=== PATIENT | male | born 1980 | race Caucasian/White ===

== ENCOUNTER 2018-08-27 14:32 | Emergency (ER) | payer MEDICAID ==
[~2018-08-27] VITALS: Ht 188 cm; Wt 90.0 kg
[~2018-08-27 14:32] MED LIST: ACET-3068 PO; ALBU8HFA PO; HYDR-4383 PO
[2018-08-27] MEDS ORDERED: ketorolac trometh. 30mg/ml inj. IV ONE (14:50)
[2018-08-27] MEDS ORDERED: ondansetron/PF 4mg/2ml inj IV ONE (14:50)
[2018-08-27] MEDS: morphine 4 MG/ML inj SYRINge IV PRN ×2 (15:02→16:42)
[2018-08-27 15:03] LABS: CLARITY,URINE SLIGHTLY CLOUDY (Clear); COLOR,URINE YELLOW (Yellow); GLUCOSE, URINE NEGATIVE (Neg); KETONES,URINE NEGATIVE (Neg); LEUKOCYTE ESTERASE ,URINE NEGATIVE (Neg); NITRITES, URINE NEGATIVE (Neg); OCCULT BLOOD,URINE NEGATIVE (Neg); PH,URINE 7.5 (4.8-8.0); PROTEIN,URINE NEGATIVE (Neg); UROBILINOGEN,URINE 0.2 E.U/dL (0.2-1.0)
[2018-08-27 15:06] LABS: UA COLLECTION TYPE CLN CATCH MIDSTREAM
[2018-08-27 15:15] LABS: BACTERIA,URINE FEW /HPF (Neg); RBC,URINE 0-2 /HPF (0-2); SQUAMOUS EPITHELIAL CELL,UR FEW /LPF (FEW); WBC,URINE NONE SEEN /HPF (0-4)
[2018-08-27 15:23] LABS: URINE AMPHETAMINE SCREEN POSITIVE (Neg); URINE BARBITUATE SCREEN NEGATIVE (Neg); URINE BENZODIAZEPINES SCREEN NEGATIVE (Neg); URINE CANNABINOID SCREEN POSITIVE (Neg); URINE COCAINE SCREEN NEGATIVE (Neg); URINE METHADONE SCREEN NEGATIVE (Neg); URINE OPIATE SCREEN POSITIVE (Neg); URINE PHENCYCLIDINE SCREEN NEGATIVE (Neg)
[2018-08-27 15:36] LABS: BASOPHILS # (AUTO) 0.1 X10'3 (0-0.2); BASOPHILS % (AUTO) 0.4 % (0-1); EOSINOPHILS # (AUTO) 0.1 X10'3 (0-0.9); EOSINOPHILS % (AUTO) 0.4 % (0-6); HEMATOCRIT 39.2 % (42.0-52.0); HEMOGLOBIN 13.3 g/dl (14.0-17.9); LYMPHOCYTES # (AUTO) 1.1 X10'3 (1.1-4.8); LYMPHOCYTES % (AUTO) 6.8 % (21-51); MEAN CORPUSCULAR HEMOGLOBIN 28.6 PG (27.0-31.0); MEAN CORPUSCULAR HGB CONC 33.9 g/dL (33.0-36.5); MEAN CORPUSCULAR VOLUME 84.2 FL (78-98); MEAN PLATELET VOLUME 7.7 FL (7.4-10.4); MONOCYTES # (AUTO) 1.1 X10'3 (0-0.9); MONOCYTES % (AUTO) 6.9 % (2-12); NEUTROPHILS # (AUTO) 14.1 X10'3 (1.8-7.7); NEUTROPHILS % (AUTO) 85.5 % (42-75); PLATELET COUNT 410 X10'3 (140-440); RED BLOOD COUNT 4.65 X10'6 (4.70-6.10); RED CELL DISTRIBUTION WIDTH 12.2 % (11.5-14.5); WHITE BLOOD COUNT 16.5 X10'3 (4.5-11.0)
[2018-08-27 15:37] LABS: INR 1.1 INR; PROTHROMBIN TIME 11.5 SECONDS (9.0-12.0)
[2018-08-27 15:40] LABS: ALANINE AMINOTRANSFERASE 22 U/L (12-78); ALBUMIN 3.6 G/DL (3.4-5.0); ALBUMIN/GLOBULIN RATIO 0.8 (1.1-1.5); ALKALINE PHOSPHATASE 70 IU/L (46-116); ANION GAP 9 (8-16); ASPARTATE AMINO TRANSFERASE 20 U/L (10-37); BILIRUBIN,TOTAL 0.4 MG/DL (0.1-1.0); BLOOD UREA NITROGEN 11 MG/DL (7-18); BUN/CREATININE RATIO 13.4 (5.4-32.0); CALCIUM 9.7 MG/DL (8.5-10.1); CHLORIDE 99 MMOL/L (99-107); CREATININE 0.82 MG/DL (0.60-1.10); GLUCOSE 130 MG/DL (70-104); POTASSIUM 4.2 MMOL/L (3.5-5.1); SODIUM 136 MMOL/L (135-145); TOTAL CARBON DIOXIDE 28.5 MMOL/L (24-32); TOTAL PROTEIN 8.3 G/DL (6.4-8.2); eGFR > 90 ML/MIN
[2018-08-27] MEDS ORDERED: LIDOcaine 2% 10ml TOPICAL JELLY (Urojet) MM ONE (16:35)
[2018-08-27] MEDS ORDERED: CIPR-230 PO (17:05)
== END 2018-08-27 17:18 | disposition home or self-care (01) ==
LOC: ER 14:32
DX: N41.9 Inflammatory disease of prostate, unspecified (principal); R33.9 Retention of urine, unspecified; F15.90 Other stimulant use, unspecified, uncomplicated; Z88.8 Allergy status to other drugs, medicaments and biological substances
CPT/HCPCS: 36415; 51702; 74176; 80053; 80305; 81001; 85025; 85610; 96374; 96375; 96376; 99284; J1885; J2270; J2405

== ENCOUNTER 2018-08-29 19:13 | Inpatient (IN) | payer MEDICAID ==
[~2018-08-29] VITALS: Ht 182.9 cm; Wt 86.4 kg
[~2018-08-29 19:13] MED LIST changes: +CIPR-230 PO
[2018-08-29 20:08] LABS: BASOPHILS # (AUTO) 0.1 X10'3 (0-0.2); BASOPHILS % (AUTO) 0.4 % (0-1); EOSINOPHILS # (AUTO) 0.2 X10'3 (0-0.9); EOSINOPHILS % (AUTO) 1.5 % (0-6); HEMATOCRIT 40.6 % (42.0-52.0); LYMPHOCYTES # (AUTO) 1.3 X10'3 (1.1-4.8); LYMPHOCYTES % (AUTO) 8.2 % (21-51); MEAN CORPUSCULAR HEMOGLOBIN 28.9 PG (27.0-31.0); MEAN CORPUSCULAR HGB CONC 34.6 g/dL (33.0-36.5); MEAN CORPUSCULAR VOLUME 83.6 FL (78-98); MEAN PLATELET VOLUME 7.5 FL (7.4-10.4); MONOCYTES # (AUTO) 1.7 X10'3 (0-0.9); MONOCYTES % (AUTO) 10.7 % (2-12); NEUTROPHILS # (AUTO) 12.3 X10'3 (1.8-7.7); NEUTROPHILS % (AUTO) 79.2 % (42-75); PLATELET COUNT 450 X10'3 (140-440); RED BLOOD COUNT 4.86 X10'6 (4.70-6.10); RED CELL DISTRIBUTION WIDTH 12.4 % (11.5-14.5); WHITE BLOOD COUNT 15.6 X10'3 (4.5-11.0)
[2018-08-29 20:14] LABS: CLARITY,URINE CLEAR (Clear); COLOR,URINE YELLOW (Yellow); GLUCOSE, URINE NEGATIVE (Neg); KETONES,URINE NEGATIVE (Neg); LEUKOCYTE ESTERASE ,URINE NEGATIVE (Neg); NITRITES, URINE NEGATIVE (Neg); OCCULT BLOOD,URINE TRACE-LYSED (Neg); PROTEIN,URINE NEGATIVE (Neg); UROBILINOGEN,URINE 0.2 E.U/dL (0.2-1.0)
[2018-08-29 20:19] LABS: ANION GAP 10 (8-16); BILIRUBIN,TOTAL 0.5 MG/DL (0.1-1.0); BLOOD UREA NITROGEN 12 MG/DL (7-18); CALCIUM 9.7 MG/DL (8.5-10.1); CHLORIDE 99 MMOL/L (99-107); GLUCOSE 91 MG/DL (70-104); POTASSIUM 4.4 MMOL/L (3.5-5.1); SODIUM 137 MMOL/L (135-145); TOTAL CARBON DIOXIDE 28.1 MMOL/L (24-32); eGFR > 90 ML/MIN
[2018-08-29 20:20] LABS: ALANINE AMINOTRANSFERASE 24 U/L (12-78); ALBUMIN 3.5 G/DL (3.4-5.0); ALBUMIN/GLOBULIN RATIO 0.7 (1.1-1.5); ALKALINE PHOSPHATASE 77 IU/L (46-116); ASPARTATE AMINO TRANSFERASE 16 U/L (10-37); INR 1.2 INR; LIPASE 174 U/L (73-393); PROTHROMBIN TIME 11.7 SECONDS (9.0-12.0); TOTAL PROTEIN 8.8 G/DL (6.4-8.2)
[2018-08-29 20:20] LABS: UA COLLECTION TYPE FOLEY CATH
[2018-08-29 20:21] LABS: BACTERIA,URINE NONE SEEN /HPF (Neg); RBC,URINE 0-2 /HPF (0-2); SQUAMOUS EPITHELIAL CELL,UR FEW /LPF (FEW); WBC,URINE NONE SEEN /HPF (0-4)
[2018-08-29] MEDS ORDERED: iohexol 300mg/ml 100ml inj. ONE (20:35)
[2018-08-29] MEDS ORDERED: morphine 4 MG/ML inj SYRINge IV ONE ×2 (21:00→22:50)
[2018-08-29] MEDS ORDERED: gentamicin 40 MG/1 ML inj IV STA (22:26)
[2018-08-29] MEDS ORDERED: levoFLOXACIN-Levaquin 750MG/D5 150 ML IV ONE (22:30)
[2018-08-29] MEDS ORDERED: normal saline 1000ML IV soln IV ONE (22:30)
[2018-08-29] MEDS ORDERED: NORMAL SALINE IV ONE (22:45)
[2018-08-29] MEDS ORDERED: GENTAMICIN IV ONE (22:45)
--- NOTE | 2018-08-29 22:53 | NUR ---
pt requested 2nd iv in hand. large bore placed for emergent fluid resuscitation and possible need for surgery
[2018-08-29] MEDS ORDERED: ondansetron/PF 4mg/2ml inj IV PRN (23:25)
[2018-08-29] MEDS ORDERED: HYDROmorphone inj. 0.5 MG/0.5 ML DISP.SYRIN IV PRN (23:25)
[2018-08-30] MEDS: normal saline 1000ml 1,000 ML IV SCH ×3 (00:23→20:44)
[2018-08-30] MEDS ORDERED: [UNRECOGNIZED DRUG - REMARK] IV ONE (00:45)
--- NOTE | 2018-08-30 01:01 | NUR ---
Received report from Ever GO from ED, time provided for questions, will assess patient when he arrives.
[2018-08-30 01:10] VITALS: BP 120/77
[2018-08-30] MEDS: HYDROmorphone 1 mg/ml syringe IV PRN ×3 (01:39→08:15)
[2018-08-30 05:57] LABS: BASOPHILS % (AUTO) 0.2 % (0-1); EOSINOPHILS # (AUTO) 0.2 X10'3 (0-0.9); EOSINOPHILS % (AUTO) 1.3 % (0-6); HEMATOCRIT 34.4 % (42.0-52.0); HEMOGLOBIN 11.8 g/dl (14.0-17.9); LYMPHOCYTES # (AUTO) 0.9 X10'3 (1.1-4.8); LYMPHOCYTES % (AUTO) 7.4 % (21-51); MEAN CORPUSCULAR HEMOGLOBIN 28.8 PG (27.0-31.0); MEAN CORPUSCULAR HGB CONC 34.3 g/dL (33.0-36.5); MEAN CORPUSCULAR VOLUME 83.7 FL (78-98); MEAN PLATELET VOLUME 7.5 FL (7.4-10.4); MONOCYTES # (AUTO) 1.1 X10'3 (0-0.9); MONOCYTES % (AUTO) 9.2 % (2-12); NEUTROPHILS # (AUTO) 9.6 X10'3 (1.8-7.7); NEUTROPHILS % (AUTO) 81.9 % (42-75); PLATELET COUNT 262 X10'3 (140-440); RED BLOOD COUNT 4.11 X10'6 (4.70-6.10); WHITE BLOOD COUNT 11.7 X10'3 (4.5-11.0)
[2018-08-30 06:31] LABS: ANION GAP 6 (8-16); CHLORIDE 103 MMOL/L (99-107); GLUCOSE 94 MG/DL (70-104); POTASSIUM 4.1 MMOL/L (3.5-5.1); SODIUM 137 MMOL/L (135-145)
[2018-08-30 06:32] LABS: ALANINE AMINOTRANSFERASE 16 U/L (12-78); ALBUMIN 2.7 G/DL (3.4-5.0); ALBUMIN/GLOBULIN RATIO 0.7 (1.1-1.5); ALKALINE PHOSPHATASE 56 IU/L (46-116); ASPARTATE AMINO TRANSFERASE 14 U/L (10-37); BILIRUBIN,TOTAL 0.5 MG/DL (0.1-1.0); BLOOD UREA NITROGEN 8 MG/DL (7-18); BUN/CREATININE RATIO 11.3 (5.4-32.0); CALCIUM 8.6 MG/DL (8.5-10.1); CREATININE 0.71 MG/DL (0.60-1.10); TOTAL PROTEIN 6.8 G/DL (6.4-8.2); eGFR > 90 ML/MIN
--- NOTE | 2018-08-30 06:49 | NUR ---
Problems reprioritized. Patient report given, questions answered & plan of care reviewed with Stephanie GO. Patient resting eyes closed respirations even
[2018-08-30 07:08] VITALS: BP 113/58
[2018-08-30] MEDS: morphine 4 MG/ML inj SYRINge IV PRN ×5 (11:20→23:49)
[2018-08-30] MEDS: vancomycin inj 1,250 MG in normal saline 250ml IV soln 250 ML IV SCH ×2 (14:41→20:44)
[2018-08-30 18:00] VITALS: BP 108/67
--- NOTE | 2018-08-30 18:20 | NUR ---
Received report from Stephanie GO, assumed care of patient.
[2018-08-30 19:58] LABS: HIV ANTIBODY 1&2 RAPID NON-REACTIVE (Neg)
[2018-08-30] MEDS ORDERED: vancomycin/NS 1 GM ADD-VANTAGE 250 ML IV SCH (20:00)
[2018-08-30] MEDS ORDERED: acetaminophen 650mg rectal suppository RC PRN (21:50)
[2018-08-30] MEDS ORDERED: acetaminophen 325mg tablet PO PRN (21:50)
[2018-08-30 22:00] VITALS: BP 111/61
[2018-08-30] MEDS ORDERED: levoFLOXACIN-Levaquin 750MG/D5 150 ML IV SCH (22:00)
[2018-08-30] MEDS ORDERED: GENTAMICIN IV SCH (23:30)
[2018-08-30] MEDS ORDERED: NORMAL SALINE IV SCH (23:30)
[2018-08-31] VITALS (25 sets, daily range): BP systolic 95–138; BP diastolic 55–103
[2018-08-31] MEDS: morphine 4 MG/ML inj SYRINge IV PRN ×7 (03:21→21:35)
[2018-08-31] MEDS: vancomycin inj 1,250 MG in normal saline 250ml IV soln 250 ML IV SCH ×3 (04:03→21:20)
[2018-08-31] MEDS: normal saline 1000ml 1,000 ML IV SCH ×2 (05:22→21:26)
[2018-08-31 05:55] LABS: BASOPHILS % (AUTO) 0.3 % (0-1); EOSINOPHILS # (AUTO) 0.1 X10'3 (0-0.9); EOSINOPHILS % (AUTO) 0.9 % (0-6); HEMATOCRIT 33.7 % (42.0-52.0); HEMOGLOBIN 11.6 g/dl (14.0-17.9); LYMPHOCYTES % (AUTO) 6.8 % (21-51); MEAN CORPUSCULAR HEMOGLOBIN 28.6 PG (27.0-31.0); MEAN CORPUSCULAR HGB CONC 34.4 g/dL (33.0-36.5); MEAN CORPUSCULAR VOLUME 83.2 FL (78-98); MEAN PLATELET VOLUME 7.5 FL (7.4-10.4); MONOCYTES # (AUTO) 1.4 X10'3 (0-0.9); NEUTROPHILS # (AUTO) 11.7 X10'3 (1.8-7.7); PLATELET COUNT 256 X10'3 (140-440); RED BLOOD COUNT 4.05 X10'6 (4.70-6.10); RED CELL DISTRIBUTION WIDTH 12.1 % (11.5-14.5); WHITE BLOOD COUNT 14.2 X10'3 (4.5-11.0)
[2018-08-31 06:17] LABS: ALANINE AMINOTRANSFERASE 19 U/L (12-78); ALBUMIN 2.7 G/DL (3.4-5.0); ALBUMIN/GLOBULIN RATIO 0.6 (1.1-1.5); ALKALINE PHOSPHATASE 72 IU/L (46-116); ANION GAP 9 (8-16); ASPARTATE AMINO TRANSFERASE 15 U/L (10-37); BILIRUBIN,TOTAL 0.6 MG/DL (0.1-1.0); BLOOD UREA NITROGEN 9 MG/DL (7-18); BUN/CREATININE RATIO 12.3 (5.4-32.0); CALCIUM 9.2 MG/DL (8.5-10.1); CHLORIDE 101 MMOL/L (99-107); CREATININE 0.73 MG/DL (0.60-1.10); GLUCOSE 101 MG/DL (70-104); POTASSIUM 3.9 MMOL/L (3.5-5.1); SODIUM 137 MMOL/L (135-145); TOTAL CARBON DIOXIDE 27.2 MMOL/L (24-32); TOTAL PROTEIN 7.1 G/DL (6.4-8.2); eGFR > 90 ML/MIN
--- NOTE | 2018-08-31 06:49 | NUR ---
Report given to Criselda GO.
[2018-08-31] MEDS: CefTRIAXone/D5W-Rocephin 1gm 50 ML IV SCH (08:31)
[2018-08-31] MEDS ORDERED: VANCOMYCIN LEVEL IV NR (11:30)
--- NOTE | 2018-08-31 13:55 | NUR ---
Student documentation: I have reviewed and agree with all interventions, assessments performed and documented by Cecilia Sharma RN.
[2018-08-31] MEDS ORDERED: ringers solution, lacted 1,000 ML IV SCH (14:08)
[2018-08-31] MEDS ORDERED: ondansetron/PF 4mg/2ml inj IV PRN (14:10)
[2018-08-31] MEDS ORDERED: labetalol 20mg/4ml (5mg/ml) syringe IV PRN (14:10)
[2018-08-31] MEDS ORDERED: hydrALAZINE 20mg/ml inj. IV PRN (14:10)
[2018-08-31] MEDS ORDERED: fentaNYL/PF 50MCG/1 ML 2ML syringe IV PRN ×2 (14:10)
[2018-08-31] MEDS ORDERED: morphine 4 MG/ML inj SYRINge IV PRN ×2 (14:10)
[2018-08-31] MEDS ORDERED: midazolam 2 mg/2 ml injection ONE (14:26)
[2018-08-31] MEDS ORDERED: fentaNYL/PF 50MCG/1 ML 2ML syringe ONE ×2 (14:26→14:55)
[2018-08-31] MEDS ORDERED: propofol inj 20 ML IV ONE (14:27)
[2018-08-31] MEDS ORDERED: LIDOcaine 2% (20mg/ml) 5ml vial ONE (14:27)
[2018-08-31] MEDS ORDERED: dexamethasone sod phosphate 10mg/ml inj ONE (14:28)
[2018-08-31] MEDS ORDERED: ondansetron/PF 4mg/2ml inj ONE (14:28)
[2018-08-31] MEDS ORDERED: sevoflurane 250ml liquid IH ONE (14:28)
--- NOTE | 2018-08-31 15:35 | NUR ---
Received from OR via BED, accompanied by Anesthesiologist KERI and report given by Anesthesiolgist. PT DROWSY, OXYGENATING WELL ON 10 LPM O2 VIA MASK, NO RESP DISTRESS NOTED. PT MOANING AND CRYING, C/O SEVERE PENIS BURNING PAIN. WILL MEDICATE PRN, SEE EMAR. FC PATENT TO GRAVITY, BLOODY DRAINAGE IN BAG. VSS. SCDS ON.
--- NOTE | 2018-08-31 17:00 | NUR ---
REC REPORT FROM LYNDA IN RECOVERY
--- NOTE | 2018-08-31 17:50 | NUR ---
CLOTTING NOTED IN LINK TUBING. NOTIFIED CHRIS VENEGAS ORDERS TO IRRIGATE TIL CLEAR THEN START CBI IF NEEDED. CBI STARTED, PINK OUTPUT IN BAG. VSS. PAIN LEVEL TRENDING DOWN, AFTER MEDS GIVEN. TOLERATING PO FLUIDS WELL. TRANSFERRED TO 3 SURG IN STABLE CONDITION. REPORT GIVEN TO RECEIVING RN.
--- NOTE | 2018-08-31 18:06 | NUR ---
PT ARRIVED FROM RECOVERY ROOM. PT ALERT AND ORIENTED. CBI RUNNING
--- NOTE | 2018-08-31 18:38 | NUR ---
Problems reprioritized. Patient report given, questions answered & plan of care reviewed with NIECY PEMBERTON RN.
--- NOTE | 2018-08-31 18:40 | NUR ---
Patient in room [facility]. I have received report from AMAN GO and had the opportunity to ask questions and assume patient care.
[2018-09-01] VITALS: BP 92/65
[2018-09-01] MEDS: normal saline 1000ml 1,000 ML IV SCH ×3 (01:22→21:22)
[2018-09-01] MEDS: vancomycin inj 1,250 MG in normal saline 250ml IV soln 250 ML IV SCH ×4 (02:07→17:47)
[2018-09-01] MEDS: morphine 4 MG/ML inj SYRINge IV PRN ×5 (02:09→21:02)
[2018-09-01] MEDS ORDERED: VANCOMYCIN LEVEL IV NR ×2 (05:30→11:30)
--- NOTE | 2018-09-01 06:30 | NUR ---
Problems reprioritized. Patient report given, questions answered & plan of care reviewed with AMAN GO.
--- NOTE | 2018-09-01 06:42 | NUR ---
Patient in room [facility]. I have received report from abelino roca rn and had the opportunity to ask questions and assume patient care.
[2018-09-01 07:00] VITALS: BP 94/50
[2018-09-01] MEDS: CefTRIAXone/D5W-Rocephin 1gm 50 ML IV SCH (09:04)
--- NOTE | 2018-09-01 18:30 | NUR ---
Patient in room [facility]. I have received report from AMAN GO and had the opportunity to ask questions and assume patient care.
[2018-09-01 20:00] VITALS: BP 113/66
--- NOTE | 2018-09-01 20:00 | NUR ---
PATIENT MOVED TO ROOM 347B.
[2018-09-02] VITALS: BP 109/60
[2018-09-02] MEDS: vancomycin inj 1,250 MG in normal saline 250ml IV soln 250 ML IV SCH ×3 (00:30→12:22)
[2018-09-02] MEDS: morphine 4 MG/ML inj SYRINge IV PRN ×3 (01:11→08:52)
[2018-09-02] MEDS: normal saline 1000ml 1,000 ML IV SCH (01:12)
--- NOTE | 2018-09-02 06:00 | NUR ---
Patient in room [facility]. I have received report from Becky GO and had the opportunity to ask questions and assume patient care.
--- NOTE | 2018-09-02 06:30 | NUR ---
Problems reprioritized. Patient report given, questions answered & plan of care reviewed with GURJIT GO.
[2018-09-02 07:30] VITALS: BP 95/53
[2018-09-02] MEDS: CefTRIAXone/D5W-Rocephin 1gm 50 ML IV SCH (09:29)
--- NOTE | 2018-09-02 10:38 | NUR ---
Dr. Fraire informed of low BP of /53 this AM. No new orders at this time.
[2018-09-02 12:10] VITALS: BP 92/46
[2018-09-02 13:34] VITALS: BP_SYST 112; BP_SYST 122; BP_SYST 125; BP_DIAS 51; BP_DIAS 59; BP_DIAS 66
--- NOTE | 2018-09-02 13:49 | NUR ---
Dr Requested patients orthostatic vitals: reported as charted, Patient ambulated 300' tolerated well. Advised Dr Wilson that patient was complaining of bladder spasms Received orders for Ditropan 5mg PO Q8H prn for spasms, [place] 5/325 Q6h Prn for mod / severe pain and Tylenol 650 mg PO Q6H prn for mild pain.
[2018-09-02] MEDS ORDERED: acetaminophen 325mg tablet PO PRN (13:50)
[2018-09-02] MEDS: oxybutynin 5mg tablet PO PRN (14:01)
[2018-09-02] MEDS: HYDROcodone/acetaminophen 5mg/325mg tablet PO PRN ×2 (14:01→19:58)
--- NOTE | 2018-09-02 18:24 | NUR ---
Problems reprioritized. Patient report given, questions answered & plan of care reviewed with Julio GO.
--- NOTE | 2018-09-02 18:25 | NUR ---
Patient in room [facility]. I have received report from GURJIT GO and had the opportunity to ask questions and assume patient care.
--- NOTE | 2018-09-02 18:28 | NUR ---
Student documentation: I have reviewed and agree with all interventions, assessments performed and documented by Maia Student Nurse. Student Medication Administration: For this medication-pass time frame, all medication were reviewed, dispensed, administered and documented per hospital policy by Maia Student Nurse.
[2018-09-02 19:00] VITALS: BP 95/54
[2018-09-02] MEDS: ciprofloxacin 250mg tablet PO SCH (19:57)
[2018-09-02] MEDS: lactobacillus rhamnosus 10,000 MMU CELLS/CAPSULE PO SCH (19:57)
[2018-09-03] VITALS: BP 99/50
--- NOTE | 2018-09-03 06:19 | NUR ---
Patient in room [facility]. I have received report from Julio GO and had the opportunity to ask questions and assume patient care.
--- NOTE | 2018-09-03 06:20 | NUR ---
Problems reprioritized. Patient report given, questions answered & plan of care reviewed with SHASTA GO.
[2018-09-03 07:00] VITALS: BP 107/63
[2018-09-03] MEDS: lactobacillus rhamnosus 10,000 MMU CELLS/CAPSULE PO SCH (07:57)
[2018-09-03] MEDS: ciprofloxacin 250mg tablet PO SCH (07:57)
[2018-09-03] MEDS: oxybutynin 5mg tablet PO PRN (07:57)
[2018-09-03] MEDS ORDERED: OXYB5TAB11 PO (09:54)
[2018-09-03] MEDS ORDERED: HYDR-4383 PO (09:54)
[2018-09-03] MEDS: HYDROcodone/acetaminophen 5mg/325mg tablet PO PRN (09:55)
--- NOTE | 2018-09-03 11:30 | NUR ---
Discharged patient home accompanied by his mother at bedside. Discharge instructions given to patient and his mom who is a nurse. Patient and the mother verbalized understanding of all instructions made. Hahn catheter care teaching done. New leg bag, drainage bag, hahn stat lock, and alcohol pads given to patient. Importance of handwashing before and after touching hahn catheter was emphasized. Instructed patient to ensure they have all their belongings. Written prescription for [place] and Ditropan were given to patient's mom. Work excuse note given to patient prior to discharge, was placed inside the discharge folder along with written prescriptions. Peripheral catheter removed, tip intact
--- NOTE | 2018-09-05 09:35 | NUR ---
pt's d/c'd, ss referral closed. Addendum: 09/05/18 at 0936 by Marva Mejía SS Amended: Links added.
== END 2018-09-03 11:35 | disposition home or self-care (01) | DRG 710 ==
LOC: ER 19:14 → ED HOLD 23:22 → EDBEDREQ 08-30 00:57 → ORTHO 4S 08-30 01:13 → UNDODISIN 08-31 15:10 → SUR 3N 08-31 17:05
PROVIDERS: ADMIT Internal Medicine; ATTEND Internal Medicine
PROC: BW211ZZ Computerized Tomography (CT Scan) of Abdomen and Pelvis using Low Osmolar Contrast (ICD-10-PCS; 2018-08-29)
PROC: 0V908ZZ Drainage of Prostate, Via Natural or Artificial Opening Endoscopic (ICD-10-PCS; 2018-08-31)
PROC: 0VB08ZZ Excision of Prostate, Via Natural or Artificial Opening Endoscopic (ICD-10-PCS; principal; 2018-08-31 14:33)
DX: A41.9 Sepsis, unspecified organism (principal); F15.90 Other stimulant use, unspecified, uncomplicated; N41.2 Abscess of prostate; K59.00 Constipation, unspecified; N32.89 Other specified disorders of bladder; F41.9 Anxiety disorder, unspecified; F32.9 Major depressive disorder, single episode, unspecified; N41.0 Acute prostatitis; R33.9 Retention of urine, unspecified; Z79.899 Other long term (current) drug therapy; Z88.8 Allergy status to other drugs, medicaments and biological substances
CPT/HCPCS: 36415; 74177; 80053; 80202; 81001; 83605; 83690; 84145; 85025; 85610; 86703; 87040; 87070; 93005; 96365; 96375; 99285; A4346; A4402; G0378; J0696; J1100; J1170; J1580; J1956; J2001; J2250; J2270; J2405; J2704; J3010; J3370; J3490; J7030; J7120; Q9967

== ENCOUNTER 2020-01-09 13:33 | Emergency (ER) | payer MEDICAID ==
[~2020-01-09] VITALS: Ht 188 cm; Wt 83.7 kg
[~2020-01-09 13:33] MED LIST changes: -ACET-3068 PO; -ALBU8HFA PO; -CIPR-230 PO; +OXYB5TAB16 PO
[2020-01-09 15:40] VITALS: BP 107/60
== END 2020-01-09 15:37 | disposition home or self-care (01) ==
LOC: ER 13:34
DX: S06.0X0A Concussion without loss of consciousness, initial encounter (principal); L72.3 Sebaceous cyst; R51 Headache; R42 Dizziness and giddiness; F15.90 Other stimulant use, unspecified, uncomplicated; Z87.01 Personal history of pneumonia (recurrent); Z87.440 Personal history of urinary (tract) infections; Z88.8 Allergy status to other drugs, medicaments and biological substances; Z79.899 Other long term (current) drug therapy; W18.39XA Other fall on same level, initial encounter; Y93.89 Activity, other specified; Y92.89 Other specified places as the place of occurrence of the external cause; Y99.8 Other external cause status
CPT/HCPCS: 70450; 93005; 99284

== ENCOUNTER 2020-03-12 16:16 | Emergency (ER) | payer MEDICAID ==
--- NOTE | 2020-03-12 16:59 | NUR ---
not in lobby.
[2020-03-12] MEDS ORDERED: SULF1TAB49 PO (21:33)
== END 2020-03-12 17:00 | disposition left against medical advice (07) ==
LOC: ER 16:17
DX: R10.9 Unspecified abdominal pain (principal); Z53.21 Procedure and treatment not carried out due to patient leaving prior to being seen by health care provider

== ENCOUNTER 2020-03-12 17:56 | Emergency (ER) | payer MEDICAID ==
[~2020-03-12] VITALS: Ht 188 cm; Wt 104.5 kg
[2020-03-12 18:29] VITALS: BP 100/64
[2020-03-12 19:15] LABS: CLARITY,URINE CLEAR (Clear); COLOR,URINE YELLOW (Yellow); GLUCOSE, URINE NEGATIVE (Neg); KETONES,URINE NEGATIVE (Neg); LEUKOCYTE ESTERASE ,URINE TRACE (Neg); NITRITES, URINE NEGATIVE (Neg); OCCULT BLOOD,URINE NEGATIVE (Neg); PROTEIN,URINE TRACE mg/dl (Neg)
[2020-03-12 19:18] LABS: UA COLLECTION TYPE CLN CATCH MIDSTREAM
[2020-03-12 19:28] LABS: BACTERIA,URINE 1+ /HPF (Neg); RBC,URINE NONE SEEN /HPF (0-2); SQUAMOUS EPITHELIAL CELL,UR FEW /LPF (FEW); WBC,URINE 0-4 /HPF (0-4)
[2020-03-12 20:06] LABS: BASOPHILS % (AUTO) 0.5 % (0-1); EOSINOPHILS # (AUTO) 0.2 X10'3 (0-0.9); EOSINOPHILS % (AUTO) 3.5 % (0-6); HEMATOCRIT 38.8 % (42.0-52.0); HEMOGLOBIN 13.3 g/dl (14.0-17.9); LYMPHOCYTES # (AUTO) 1.4 X10'3 (1.1-4.8); LYMPHOCYTES % (AUTO) 28.9 % (21-51); MEAN CORPUSCULAR HEMOGLOBIN 28.4 PG (27.0-31.0); MEAN CORPUSCULAR HGB CONC 34.2 g/dL (33.0-36.5); MEAN CORPUSCULAR VOLUME 83.2 FL (78-98); MEAN PLATELET VOLUME 7.9 FL (7.4-10.4); MONOCYTES # (AUTO) 0.5 X10'3 (0-0.9); MONOCYTES % (AUTO) 10.9 % (2-12); NEUTROPHILS # (AUTO) 2.8 X10'3 (1.8-7.7); NEUTROPHILS % (AUTO) 56.2 % (42-75); PLATELET COUNT 190 X10'3 (140-440); RED BLOOD COUNT 4.66 X10'6 (4.70-6.10); RED CELL DISTRIBUTION WIDTH 13.4 % (11.5-14.5)
[2020-03-12 20:17] LABS: ALANINE AMINOTRANSFERASE 17 U/L (12-78); ALKALINE PHOSPHATASE 65 IU/L (46-116); ANION GAP 3 (8-16); ASPARTATE AMINO TRANSFERASE 26 U/L (10-37); BILIRUBIN,TOTAL 0.5 MG/DL (0.1-1.0); BLOOD UREA NITROGEN 15 MG/DL (7-18); BUN/CREATININE RATIO 14.4 (5.4-32.0); CHLORIDE 104 MMOL/L (99-107); CREATININE 1.04 MG/DL (0.60-1.10); GLUCOSE 80 MG/DL (70-104); POTASSIUM 4.1 MMOL/L (3.5-5.1); SODIUM 141 MMOL/L (135-145); TOTAL CARBON DIOXIDE 33.8 MMOL/L (24-32); eGFR 79 ML/MIN
[2020-03-12] MEDS ORDERED: SULF1TAB49 PO (21:33)
== END 2020-03-12 21:56 | disposition home or self-care (01) ==
LOC: ER 17:57
DX: N39.0 Urinary tract infection, site not specified (principal); R10.30 Lower abdominal pain, unspecified; R30.0 Dysuria; F15.90 Other stimulant use, unspecified, uncomplicated; Z87.01 Personal history of pneumonia (recurrent); Z87.442 Personal history of urinary calculi; Z88.8 Allergy status to other drugs, medicaments and biological substances; Z79.2 Long term (current) use of antibiotics
CPT/HCPCS: 36415; 80053; 81001; 84145; 85025; 87088; 99284

== ENCOUNTER 2020-04-03 00:38 | Emergency (ER) | payer MEDICAID ==
[~2020-04-03] VITALS: Ht 188 cm; Wt 90.9 kg
--- NOTE | 2020-04-03 01:47 | NUR ---
dr. fishman at bedside assessing patient
[2020-04-03] MEDS ORDERED: ketorolac trometh. 30mg/ml inj. IM ONE (02:00)
[2020-04-03] MEDS ORDERED: CYCL-1 PO (02:49)
[2020-04-03 02:57] VITALS: BP 136/89
== END 2020-04-03 02:56 | disposition home or self-care (01) ==
LOC: ER 00:39
DX: S29.012A Strain of muscle and tendon of back wall of thorax, initial encounter (principal); F15.90 Other stimulant use, unspecified, uncomplicated; Z88.8 Allergy status to other drugs, medicaments and biological substances; Z79.899 Other long term (current) drug therapy; X58.XXXA Exposure to other specified factors, initial encounter; Y93.89 Activity, other specified; Y92.89 Other specified places as the place of occurrence of the external cause; Y99.8 Other external cause status
CPT/HCPCS: 71046; 96372; 99283; J1885

== ENCOUNTER 2020-10-08 04:07 | Emergency (ER) | payer MEDICAID ==
[~2020-10-08] VITALS: Ht 188 cm; Wt 90.0 kg
[~2020-10-08 04:07] MED LIST changes: +CYCL-1 PO
[2020-10-08 06:48] VITALS: BP 102/58
[2020-10-08] MEDS ORDERED: DOXY100C43 PO (07:05)
[2020-10-08] MEDS ORDERED: CEPH-585 PO (07:05)
[2020-10-08] MEDS ORDERED: DOXYCYCLINE 100MG CAPSULE PO STA (07:06)
[2020-10-08] MEDS ORDERED: cephalexin 500mg capsule PO ONE (07:10)
== END 2020-10-08 07:32 | disposition home or self-care (01) ==
LOC: ER 04:09
DX: L97.929 Non-pressure chronic ulcer of unspecified part of left lower leg with unspecified severity (principal); L97.919 Non-pressure chronic ulcer of unspecified part of right lower leg with unspecified severity; L03.116 Cellulitis of left lower limb; L03.115 Cellulitis of right lower limb; F15.90 Other stimulant use, unspecified, uncomplicated; Z98.890 Other specified postprocedural states; Z88.8 Allergy status to other drugs, medicaments and biological substances; Z79.899 Other long term (current) drug therapy
CPT/HCPCS: 99283

== ENCOUNTER 2021-01-01 12:24 | Emergency (ER) | payer MEDICAID ==
[~2021-01-01] VITALS: Ht 188 cm; Wt 90.9 kg
[~2021-01-01 12:24] MED LIST changes: +CEPH-585 PO
[2021-01-01 13:20] VITALS: BP 115/80
[2021-01-01] MEDS ORDERED: HYDR-3965 PO (13:50)
[2021-01-01] MEDS ORDERED: CEPH500C2 PO (13:50)
[2021-01-01] MEDS ORDERED: SULF1TAB49 PO (13:50)
== END 2021-01-01 13:56 | disposition home or self-care (01) ==
LOC: ER 12:25
DX: L03.115 Cellulitis of right lower limb (principal); M79.661 Pain in right lower leg; F15.90 Other stimulant use, unspecified, uncomplicated; F19.90 Other psychoactive substance use, unspecified, uncomplicated; M25.471 Effusion, right ankle; Z87.440 Personal history of urinary (tract) infections; Z87.01 Personal history of pneumonia (recurrent); Z88.8 Allergy status to other drugs, medicaments and biological substances; Z79.2 Long term (current) use of antibiotics
CPT/HCPCS: 99283

== ENCOUNTER 2021-02-17 05:04 | Emergency (ER) | payer MEDICAID ==
[~2021-02-17] VITALS: Ht 188 cm; Wt 66.2 kg
[2021-02-17] MEDS ORDERED: CEPH-585 PO (05:09)
[2021-02-17] MEDS ORDERED: SULF1TAB49 PO (05:09)
[2021-02-17 05:15] VITALS: BP 137/73
== END 2021-02-17 06:03 | disposition home or self-care (01) ==
LOC: ER 05:05
DX: L03.115 Cellulitis of right lower limb (principal); F15.90 Other stimulant use, unspecified, uncomplicated; Z87.01 Personal history of pneumonia (recurrent); Z87.440 Personal history of urinary (tract) infections; Z86.19 Personal history of other infectious and parasitic diseases; Z88.8 Allergy status to other drugs, medicaments and biological substances; Z79.2 Long term (current) use of antibiotics; Z79.899 Other long term (current) drug therapy
CPT/HCPCS: 99283

== ENCOUNTER 2021-07-24 03:46 | Emergency (ER) | payer MEDICAID ==
[~2021-07-24] VITALS: Ht 188 cm; Wt 90.9 kg
[2021-07-24] MEDS ORDERED: SULF1TAB49 PO (04:36)
[2021-07-24] MEDS ORDERED: CEPH-585 PO (04:39)
--- NOTE | 2021-07-24 05:09 | NUR ---
XEROFORM APPLIED TO PT'S WOUNDS. WOUNDS DRESSED WITH GAUZE. LOOSELY FITTING BANDAGES PER MD ORDERS.
[2021-07-24 05:10] VITALS: BP 111/73
== END 2021-07-24 05:12 ==
LOC: ER 03:47
DX: R60.0 Localized edema (principal); F15.90 Other stimulant use, unspecified, uncomplicated; Z87.01 Personal history of pneumonia (recurrent); Z87.440 Personal history of urinary (tract) infections; Z98.890 Other specified postprocedural states; Z88.8 Allergy status to other drugs, medicaments and biological substances; Z79.2 Long term (current) use of antibiotics; Z79.899 Other long term (current) drug therapy
CPT/HCPCS: 99283

== ENCOUNTER 2021-07-31 00:40 | Emergency (ER) | payer MEDICAID ==
[~2021-07-31] VITALS: Ht 188 cm; Wt 90.9 kg
[~2021-07-31 00:40] MED LIST changes: +SULF1TAB49 PO
[2021-07-31 00:46] VITALS: BP 122/64
== END 2021-07-31 05:15 | disposition left against medical advice (07) ==
LOC: ER 00:41
DX: R22.9 Localized swelling, mass and lump, unspecified (principal); Z53.21 Procedure and treatment not carried out due to patient leaving prior to being seen by health care provider

== ENCOUNTER 2021-10-20 09:26 | Emergency (ER) | payer MEDICAID ==
[~2021-10-20] VITALS: Ht 188 cm; Wt 90.9 kg
[~2021-10-20 09:26] MED LIST changes: -SULF1TAB49 PO
[2021-10-20 09:37] VITALS: BP 123/73
--- NOTE | 2021-10-20 10:04 | NUR ---
NOT IN LOBBY
== END 2021-10-20 13:39 | disposition home or self-care (01) ==
LOC: ER 09:27
DX: I87.2 Venous insufficiency (chronic) (peripheral) (principal); M79.605 Pain in left leg; M79.604 Pain in right leg; F15.90 Other stimulant use, unspecified, uncomplicated; F19.90 Other psychoactive substance use, unspecified, uncomplicated; Z87.440 Personal history of urinary (tract) infections; Z87.01 Personal history of pneumonia (recurrent); Z88.8 Allergy status to other drugs, medicaments and biological substances; Z79.2 Long term (current) use of antibiotics
CPT/HCPCS: 99281

== ENCOUNTER 2022-02-17 23:39 | Emergency (ER) | payer MEDICAID ==
[~2022-02-17] VITALS: Ht 188 cm; Wt 90.9 kg
[2022-02-17 23:43] VITALS: BP 111/67
[2022-02-17] MEDS ORDERED: sulfamethoxazole/trimethoprim DS (800/160mg) tablet PO ONE (23:45)
[2022-02-17] MEDS ORDERED: SULF1TAB49 PO (23:53)
== END 2022-02-17 23:57 ==
LOC: ER 23:39
DX: I83.12 Varicose veins of left lower extremity with inflammation (principal); I83.11 Varicose veins of right lower extremity with inflammation; L03.115 Cellulitis of right lower limb; F15.20 Other stimulant dependence, uncomplicated; Z88.8 Allergy status to other drugs, medicaments and biological substances
CPT/HCPCS: 99283

== ENCOUNTER 2022-02-24 15:27 | Emergency (ER) | payer MEDICAID ==
[~2022-02-24] VITALS: Ht 188 cm; Wt 90.9 kg
[~2022-02-24 15:27] MED LIST changes: +SULF1TAB49 PO
[2022-02-24 19:56] VITALS: BP 108/75
[2022-02-24] MEDS ORDERED: CEPH-585 PO (21:25)
== END 2022-02-24 22:11 | disposition home or self-care (01) ==
LOC: ER 15:29
DX: I87.2 Venous insufficiency (chronic) (peripheral) (principal); L97.219 Non-pressure chronic ulcer of right calf with unspecified severity; F15.10 Other stimulant abuse, uncomplicated; Z88.8 Allergy status to other drugs, medicaments and biological substances; Z79.2 Long term (current) use of antibiotics; Z87.448 Personal history of other diseases of urinary system
CPT/HCPCS: 99283

== ENCOUNTER 2022-07-19 23:31 | Emergency (ER) | payer MEDICAID ==
[~2022-07-19] VITALS: Ht 188 cm; Wt 90.9 kg
[~2022-07-19 23:31] MED LIST changes: -SULF1TAB49 PO
[2022-07-19 23:42] VITALS: BP 109/61
[2022-07-20] MEDS ORDERED: CEFU500T66 PO (01:59)
--- NOTE | 2022-07-20 02:34 | NUR ---
Discharged prior to nurse being assigned. See provider notes for assessment.
== END 2022-07-20 02:34 | disposition home or self-care (01) ==
LOC: ER 23:33
DX: L97.919 Non-pressure chronic ulcer of unspecified part of right lower leg with unspecified severity (principal); F15.90 Other stimulant use, unspecified, uncomplicated; Z98.890 Other specified postprocedural states; Z88.8 Allergy status to other drugs, medicaments and biological substances; Z79.899 Other long term (current) drug therapy
CPT/HCPCS: 99283; A6258; A6446

== ENCOUNTER 2025-01-25 12:41 | Emergency (ER) | payer MEDICAID ==
[~2025-01-25] VITALS: Ht 188 cm; Wt 83.5 kg
[~2025-01-25 12:41] MED LIST changes: +CEFU500T66 PO; -CEPH-585 PO; -OXYB5TAB16 PO; +OXYB5TAB21 PO
--- NOTE | 2025-01-25 13:26 | RADIOLOGY REPORT ---
DI SHOULDER, COMPLETE (MIN 2 VWS) INDICATION: pain post fall 1 week ago TECHNICAL DATA: 2 views were obtained of the left shoulder. COMPARISON: None FINDINGS: There is no fracture or focal bone abnormality. Calcific tendinosis is visualized. The glenohumeral j oint is normally maintained. The acromioclavicular joint appears normal. The humeral head is not high riding. Adjacent soft tissues are within normal limits. IMPRESSION: No acute fracture or dislocation of the left shoulder.
[2025-01-25] MEDS: ketorolac trometh 30MG/ML vial 30 MG/ML VIAL IM ONE (14:00)
--- NOTE | 2025-01-25 14:14 | Physician Documentation ---
History of Present Illness ~ Chief Complaint: Shoulder pain Stated Complaint: L SHOULDER DISLOCATION Time Seen by MD: 13:03 Primary Medical Doctor: LOLA DAVALOS [facility] The patient is a 44 yo male that presents to the emergency department for evaluation of left shoulder pain x one week. Patient reports that he fell approximately a week ago with an outstretched arm on that side and his shoulder has hurt since that time. Patient denies taking anything for pain at this time and would like to try Tylenol or Toradol if he's able. Patient denies any other significant past medical history at this time. Tetanus within 5 years?: Yes Medication Reconciliation Allergies: Coded Allergies: meperidine HCl (Verified Allergy, Unknown, 01/25/25) Scheduled Cefuroxime Axetil (Cefuroxime), 1 TAB PO Q12H Scheduled PRN Cyclobenzaprine* (Cyclobenzaprine*), 1 TAB PO TID PRN for pain Hydrocodone/Acetaminophen ([place] 5-325 Tablet), 1 TAB PO Q6H PRN for moderate or severe pain Oxybutynin Chloride (Oxybutynin Chloride), 5 MG PO Q8H PRN for bladder spasms Past Medical History Past Medical History: Pneumonia, UTI, Cellulitis Past Surgical History: no surgical history Smoking Status: Never smoker Alcohol Use: None Drug Use: methamphetamine, other Lives with: Family Lives In: Home Occupation: employed Review of Systems ROS As stated above in the HPI, otherwise all systems are reviewed and negative. Physical Exam Vital Signs: Temperature: 97.0, Source: Temporal, Heart Rate: 61, Respiratory Rate: 16, BP: 111/72, Pulse Oximetry: 98, Weight: 83.450 Oxygen Flow Rate: 0 Physical Exam VITALS: Reviewed and as above. GENERAL: Alert, no apparent distress. HEENT: Normocephalic, atraumatic, PERRL, EOMI, dry mucosa, no erythema RESPIRATORY: Lungs clear, normal breath sounds, no respiratory distress. CHEST: No accessory muscle use, no retractions CV: Regular rate, rhythm, no edema, no murmur, No: JVD GI: Soft, non-tender, bowels sounds present, no rebound, guarding, or rigidity BACK: No CVA tenderness, or swelling MUSCULOSKELETAL No deformities, no edema, pain with examination and reduced range of motion. SKIN: Warm and dry, no rash NEURO: Oriented x4, No motor or sensory deficit PSYCH: Normal mood and affect, no agitation Progress Results/Orders Results/Orders Orders - [facility] Shoulder, Complete (Min 2 Vws) (01/25/25 13:03) Completed Orders - [facility] Shoulder, Complete (Min 2 Vws) (01/25/25 13:03) Ketorolac Trometh 30mg/Ml Vial (Toradol (01/25/25 13:40) Acetaminophen 325mg Tablet (Tylenol Tabl (01/25/25 13:45) Vital Signs 01/25/25 01/25/25 01/25/25 12:58 14:00 14:22 Temp 97.0 97.9 Pulse 61 67 Resp 16 16 16 B/P (MAP) 111/72 118/62 Pulse Ox 98 98 O2 Flow Rate 0 Medical Decision Making Findings Patient presents with left shoulder pain. Given history, exam and workup patient likely has arthritis. I have low suspicion for fracture, dislocation, significant ligamentous injury, septic arthritis, gout flare, new autoimmune arthropathy, or gonococcal arthropathy. Patient provided with Toradol injection and Tylenol. Patient will follow up by primary care provider. Patient will return to the emergency department if he has any worsening of his current symptoms or any additional concerning symptoms that we discussed here today. Differential Dx:Considerations: Include: AC separation, Adhesive capsulitis, arthritis, Bicipital tendonitis, Calcific tendonitis, Cervical disc disease, Contusion, Dislocation, Fracture: Humerus, Fracture: Scapula, Fracture: Clavicle, Gallbladder Disease, Hematoma, Impingement syndrome, Myocardial infarction, Neurovascular Injury, Rotator cuff injury, SC dislocation, Sprain, Subacromial bursitis, other Departure Disposition: 01 HOME / SELF CARE / HOMELESS Impression: Primary Impression: Shoulder pain Condition: Stable Discharge Instructions: Shoulder Pain Additional Instructions: Your evaluated for left shoulder pain. Based on exam radiologic imaging, we have ruled out fracture or dislocation. Please follow up with your primary care provider if your symptoms continue. Tylenol and ibuprofen as needed for discomfort. Please return to the emergency department if you have any worsening recurrent symptoms or any additional concerning symptoms that we discussed here today. Referrals: NO PRIMARY CARE PROVIDER (PCP) Education Educated: Patient Educated regarding: treatment, need for follow up Signature Scribe Signature: A Attestation: Scribed for Sara Alexander by TERESA Candelario . 01/27/25 13:18 SARA ALEXANDER Jan 25, 2025 14:14
[2025-01-25 14:22] VITALS: BP 118/62; PULSE 67; RESP 16; TEMP 97.9; O2SAT 98
== END 2025-01-25 14:24 | disposition home or self-care (01) ==
LOC: ER 12:41
DX: M25.512 Pain in left shoulder (principal); W19.XXXA Unspecified fall, initial encounter; F15.90 Other stimulant use, unspecified, uncomplicated; Y93.89 Activity, other specified; Y92.89 Other specified places as the place of occurrence of the external cause; Y99.8 Other external cause status
CPT/HCPCS: 73030; 96372; 99283; J1885; A4565